=== PATIENT | female | born 1990 | race Caucasian/White ===

== ENCOUNTER 2023-07-25 15:56 | Emergency (ER) | payer BC ==
[2023-07-25 16:23] VITALS: TEMP 98.1
[2023-07-25] MEDS ORDERED: TORAdol 30 mg Injection IM ONE (17:01)
[2023-07-25] MEDS ORDERED: DECADRON 10MG INJ. IM ONE (17:01)
--- NOTE | 2023-07-25 17:06 | ERPHSYRPT ---
- History of Present Illness Time Seen by Provider: 07/25/23 16:30 Source: patient Exam Limitations: no limitations Patient Subjective Stated Complaint: pt states that she bent down yesterday to get dog food. 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 Pain is localized. No radiation. Pain is reproduced with movement and palpation. Pain improved with rest. No midline back pain. No change in bowel bladder function. No saddle anesthesia. No recent back procedures. No fever. No lower extremity weakness. Pain is localized. Patient states he is otherwise healthy. Patient adamantly denies the possibility of and states that testing is not necessary. Patient otherwise voices no other complaints or concerns at this time. Portions of this note were created with voice recognition technology. There may be grammatical, spelling, punctuation or sound alike errors Timing/Duration: today Method of Injury: bending Quality: dull Back Pain Location: T-spine (Right thoracic paraspinal musculature) Severity of Pain-Max: moderate Severity of Pain-Current: mild Modifying Factors: Improves With: movement Associated Symptoms: denies symptoms Previous symptoms: same symptoms as today Allergies/Adverse Reactions: No Known Drug Allergies Allergy (Unverified 07/25/23 16:07) Hx Tetanus, Diphtheria Vaccination/Date Given: No Hx Influenza Vaccination/Date Given: No Travel Risk - International Travel Have you traveled outside of the country in past 3 weeks: No - Coronavirus Screening Are you exhibiting any of the following symptoms?: No Close contact with a COVID-19 positive Pt in past 14-21 Days: No - Vaccine Status Have you recieved a Covid-19 vaccination: No - Review of Systems Constitutional: No Symptoms, No Fever, No Chills Eyes: No Symptoms Ears, Nose, & Throat: No Symptoms Respiratory: No Symptoms, No Cough, No Dyspnea Cardiac: No Symptoms, No Chest Pain, No Edema, No Syncope Abdominal/Gastrointestinal: No Symptoms, No Abdominal Pain, No Nausea, No Vomiting, No Diarrhea Genitourinary Symptoms: No Symptoms, No Dysuria Musculoskeletal: No Symptoms, No Back Pain, No Neck Pain Skin: No Symptoms, No Rash Neurological: No Symptoms, No Dizziness, No Focal Weakness, No Sensory Changes Psychological: No Symptoms Endocrine: No Symptoms Hematologic/Lymphatic: No Symptoms Immunological/Allergic: No Symptoms All Other Systems: Reviewed and Negative - Past Medical History Pertinent Past Medical History: Yes Neurological History: No Pertinent History ENT History: No Pertinent History Cardiac History: No Pertinent History Respiratory History: No Pertinent History Endocrine Medical History: Other Musculoskeletal History: No Pertinent History GI Medical History: Other History: No Pertinent History Psycho-Social History: No Pertinent History Female Reproductive Disorders: No Pertinent History Other Medical History: marielle, constipation - Past Surgical History Past Surgical History: Yes Neuro Surgical History: No Pertinent History Cardiac: No Pertinent History Respiratory: No Pertinent History Gastrointestinal: Colon Resection Genitourinary: No Pertinent History Musculoskeletal: No Pertinent History Female Surgical History: No Pertinent History - Social History Smoking Status: Light tobacco smoker Exposure to second hand smoke: Yes Drug Use: none Patient Lives Alone: No - Female History Hx Now: No - Nursing Vital Signs Nursing Vital Signs: Initial Vital Signs Temperature 98.1 F 07/25/23 16:08 Pulse Rate 84 07/25/23 16:08 Respiratory Rate 16 07/25/23 16:08 Blood Pressure 112/70 07/25/23 16:08 O2 Sat by Pulse Oximetry 100 07/25/23 16:08 Pain Scale Pain Intensity [Right Back] 7 Pain Intensity 7 - Physical Exam General Appearance: no apparent distress, alert Eye Exam: PERRL/EOMI, eyes nml inspection Neck Exam: normal inspection, non-tender, supple, full range of motion, No meningismus, No midline tenderness Respiratory Exam: normal breath sounds, lungs clear, airway intact, No respiratory distress Cardiovascular Exam: regular rate/rhythm, normal heart sounds, normal peripheral pulses Gastrointestinal Exam: soft, No tenderness, No mass Back Exam: other (Tenderness to palpation at the right lower thoracic paraspinal muscle. Overlying soft tissue intact. No signs of trauma. Pain reproduced with movement. Pain improved with rest.) Extremity Exam: normal inspection, normal range of motion, No calf tenderness, No pedal edema Neurologic Exam: alert, oriented x 3, cooperative, raveler II-XII nml as tested, normal mood/affect, nml station & gait, sensation nml, No motor deficits Skin Exam: normal color, warm, dry, No rash SpO2 Interpretation: normal SpO2: 100 O2 Delivery: Room Air - Course Nursing assessment & vital signs reviewed: Yes Ordered Tests: Medication Summary Generic Name Dose Route Start Last Admin Trade Name Byron PRN Reason Stop Dose Admin Ketorolac Tromethamine 30 mg 07/25/23 17:01 Ketorolac Tromethamine 30 Mg/Ml Inj IM 07/25/23 17:02 STAT ONE - Progress Progress: improved Progress Note: Patient is a 33-year-old female presents to our ED for evaluation of right thoracic paraspinal muscle spasm that occurred while bending forward. Injury occurred today. No blunt trauma. No fever. No recent back procedure. No saddle anesthesia. No lower extremity weakness. Pain is localized. Pain reproduced with movement and palpation. Pain improved with rest. Patient that she is otherwise healthy. She voices no other complaints or concerns at this time. No midline pain or tenderness. No indication for imaging studies. Patient received Toradol and Decadron for pain control. A prescription for Toradol forwarded to patient's pharmacy. Patient declined testing as she states is not possible. Patient voices no other complaints or concerns at this time. Portions of this note were created with voice recognition technology. There may be grammatical, spelling, punctuation or sound alike errors Complexity of problems addressed is low acute uncomplicated No critical care time Complexity of data reviewed and analyzed as none. Diagnosis made based on history and physical examination. No specialized testing ordered or indicated Risk of complication and or risk of morbidity/mortality of patient management is moderate. A prescription for Toradol forwarded to patient's pharmacy. Vital stable. Time spent to discharge patient is approximately 15 minutes. Plan of care established for shared decision making. No social determinants of health present to impede follow-up. Patient agrees to follow-up with her primary care doctor within 48 hours for reevaluation. Portions of this note were created with voice recognition technology. There may be grammatical, spelling, punctuation or sound alike errors 07/25/23 17:08 Counseled pt/family regarding: diagnosis, need for follow-up - Departure Departure Disposition: Home Clinical Impression: Strain of thoracic paraspinal muscles excluding T1 and T2 levels Condition: Stable Critical Care Time: No Referrals: RUEL GOEL MD [Primary Care Provider] - Follow up/PCP as directed Additional Instructions: Discharge/Care Plan PEDRO AGUERO was seen on 07/25/23 in the Emergency Room. The patient was counseled regarding Diagnosis,Lab results, Imaging studies, need for follow up and when to return to the Emergency Room. Prescriptions given: Discharge Note I have spoken with the patient and/or caregivers. I have explained the patient's condition, diagnosis and treatment plan based on the information available to me at this time. I have answered the patient's and/or caregiver's questions and addressed any concerns. The patient and/or caregivers have as good understanding of the patient's diagnosis, condition and treatment plan as can be expected at this point. The vital signs have been stable. The patient's condition is stable and appropriate for discharge from the emergency department. The patient will pursue further outpatient evaluation with the primary care physician or other designated or consulting physician as outlined in the discharge instructions. The patient and/or caregivers are agreeable to this plan of care and follow-up instructions have been explained in detail. The patient and/or caregivers have received these instruction. The patient/and or caregivers are aware that any significant change in condition or worsening of symptoms should prompt an immediate return to this or the closest emergency department or call 911. Prescriptions: Ketorolac Trometh 10 mg Tab [TORAdol 10 MG TABLET] 10 mg PO TID 5 Days #15 tablet
[2023-07-25] MEDS ORDERED: TORAdol 30 mg Injection ONE (17:07)
[2023-07-25] MEDS ORDERED: DECADRON 10MG INJ. ONE (17:07)
[2023-07-25 17:36] VITALS: BP 111/78; PULSE 70; RESP 18; O2SAT 98
== END 2023-07-25 17:36 | disposition home or self-care (01) ==
LOC: ED 15:56
DX: S29.012A Strain of muscle and tendon of back wall of thorax, initial encounter (principal); X50.0XXA Overexertion from strenuous movement or load, initial encounter; Y93.K9 Activity, other involving animal care; Z28.310 Unvaccinated for COVID-19; Z72.0 Tobacco use
CPT/HCPCS: 96372; 99283; J1100; J1885